=== PATIENT | male | born 1990 | race American Indian/Alaskan Native ===

== ENCOUNTER 2019-10-26 17:14 | Emergency (ER) | payer SELFPAY ==
[2019-10-26 17:48] VITALS: BP 111/67
== END 2019-10-26 17:48 | disposition left against medical advice (07) ==
LOC: ED 17:14
DX: R42 Dizziness and giddiness (principal); Z53.21 Procedure and treatment not carried out due to patient leaving prior to being seen by health care provider
CPT/HCPCS: 82962

== ENCOUNTER 2022-01-06 07:25 | Emergency (ER) | payer SELFPAY ==
[2022-01-06 07:57] VITALS: BP 132/77
[2022-01-06] MEDS ORDERED: ONDANSETRON 4 MG ODT TAB PO ONE (10:36)
[2022-01-06] MEDS ORDERED: MORPHINE 4 MG/1 ML INJ IM ONE (10:36)
[2022-01-06] MEDS ORDERED: LIDOCAINE (1%) 10 MG/1 ML VIAL 20 ML MDV INFILTRATI ONE (10:36)
--- NOTE | 2022-01-06 11:08 | Emergency Department Report ---
- General Chief complaint: Skin/Abscess/Foreign Body Stated complaint: BOIL ON BUTT Time Seen by Provider: 01/06/22 09:41 Source: patient Mode of arrival: Ambulatory Limitations: No Limitations - History of Present Illness Initial comments: 31-year-old male with no significant history presenting with abscess. Patient reports an abscess on his buttock which he noticed started about a week ago and is progressively gotten bigger and worse. Pain is worse with walking, movement, difficulty sitting, or having a bowel movement. He denies fever or chills, he denies abdominal pain, he denies prior history of abscesses, he denies diarrhea, abdominal pain vomiting fever or anal intercourse. MD complaint: abscess/boil Location: buttocks Severity scale (0 -10): 10 Quality: stabbing, sharp Consistency: constant Improves with: rest Worsens with: palpation, movement Context: none Associated symptoms: denies other symptoms Treatments Prior to Arrival: none - Related Data Previous Rx's Medication Instructions Recorded Last Taken Type Ibuprofen [Motrin 800 MG tab] 800 mg PO Q8HR PRN #30 tablet 01/06/22 Unknown Rx Sulfamethoxazole/Trimethoprim 1 each PO BID #14 01/06/22 Unknown Rx [Bactrim DS TAB] traMADoL [Ultram 50 MG tab] 50 mg PO Q6HR PRN #12 tablet 01/06/22 Unknown Rx Allergies Allergy/AdvReac Type Severity Reaction Status Date / Time No Known Allergies Allergy Unverified 01/06/22 07:57 Abscess Boil HPI - HPI Chief Complaint: Skin/Abscess/Foreign Body Stated Complaint: BOIL ON BUTT Time Seen by Provider: 01/06/22 09:41 Home Medications: Previous Rx's Medication Instructions Recorded Last Taken Type Ibuprofen [Motrin 800 MG tab] 800 mg PO Q8HR PRN #30 tablet 01/06/22 Unknown Rx Sulfamethoxazole/Trimethoprim 1 each PO BID #14 01/06/22 Unknown Rx [Bactrim DS TAB] traMADoL [Ultram 50 MG tab] 50 mg PO Q6HR PRN #12 tablet 01/06/22 Unknown Rx Allergies/Adverse Reactions: Allergies Allergy/AdvReac Type Severity Reaction Status Date / Time No Known Allergies Allergy Unverified 01/06/22 07:57 ED Review of Systems ROS: Stated complaint: BOIL ON BUTT Other details as noted in HPI Constitutional: no symptoms reported ENT: denies: ear pain, throat pain Respiratory: denies: cough Cardiovascular: denies: chest pain Endocrine: denies: excessive sweating, intolerance to cold, intolerance to heat Gastrointestinal: denies: abdominal pain, nausea, vomiting, diarrhea, constipation Genitourinary: denies: urgency, frequency Musculoskeletal: denies: back pain Skin: lesions Neurological: denies: headache, weakness Psychiatric: denies: anxiety Hematological/Lymphatic: denies: easy bleeding ED Past Medical Hx - Past Medical History Previous Medical History?: No Hx Diabetes: Yes - Surgical History Past Surgical History?: No - Social History Smoking Status: Never Smoker Substance Use Type: None - Medications Home Medications: Home Medications Medication Instructions Recorded Confirmed Last Taken Type Ibuprofen [Motrin 800 MG tab] 800 mg PO Q8HR PRN #30 tablet 01/06/22 Unknown Rx Sulfamethoxazole/Trimethoprim 1 each PO BID #14 01/06/22 Unknown Rx [Bactrim DS TAB] traMADoL [Ultram 50 MG tab] 50 mg PO Q6HR PRN #12 tablet 01/06/22 Unknown Rx ED Physical Exam - General Limitations: No Limitations General appearance: alert, anxious (Uncomfortable appearing male) - Head Head exam: Present: atraumatic - Eye Eye exam: Present: normal appearance, PERRL Pupils: Present: normal accommodation - ENT ENT exam: Present: normal exam, normal orophraynx - Neck Neck exam: Present: normal inspection - Respiratory Respiratory exam: Present: normal lung sounds bilaterally. Absent: respiratory distress - Cardiovascular Cardiovascular Exam: Present: regular rate, normal rhythm - GI/Abdominal GI/Abdominal exam: Present: soft. Absent: distended, tenderness - Rectal Rectal exam: Present: normal rectal tone, other (Patient has a 3.5 cm abscess on his right cheek gluteal cleft, does not extend to the anal area or the anus. Note palpable tracking) - External exam: Present: swelling - Extremities Exam Extremities exam: Present: normal inspection - Back Exam Back exam: Present: normal inspection, full ROM - Neurological Exam Neurological exam: Present: alert, oriented X3, CN II-XII intact, normal gait. Absent: motor sensory deficit - Psychiatric Psychiatric exam: Present: normal affect, normal mood - Skin Skin exam: Present: warm, dry, intact, normal color ED Course Vital Signs 01/06/22 07:55 Temperature 98.4 F Pulse Rate 70 Respiratory 18 Rate Blood Pressure 132/77 [Left] O2 Sat by Pulse 99 Oximetry - I & D Right Sacrum Type of Procedure: Simple Blade Size: 11 I & D Procedure: betadine prep, gauze wick placed Progress: Verbal consent from I&D obtained from patient who verbalizes the risk involved include. 3 x 5 abscess area anesthetized with lidocaine, scalpel, copious amount of purulent serous drainage expelled, patient tolerated procedure well, no indication for packing,, topical dressing. ED Medical Decision Making - Medical Decision Making Afebrile stable vital signs, nontoxic-appearing, abscess drained, expressed, discharged with warm compress, antibiotics, and outpatient follow-up. Patient remained stable nontoxic-appearing, afebrile, ambulating steadily without assistance. Gone over ED findings with patient as well as plan for follow-up. Also discussed return precautions with patient, all questions and concerns addressed. Patient is stable to be discharged follow-up outpatient. Audio voice dictation device used, hence the chart might contain some dictation errors, mispronunciations, wrong spelling and wrong verbiage. Critical care attestation.: If time is entered above; I have spent that time in minutes in the direct care of this critically ill patient, excluding procedure time. ED Disposition Clinical Impression: Abscess of buttock, right Disposition: 01 HOME / SELF CARE / HOMELESS Is pt being admited?: No Does the pt Need Aspirin: No Condition: Stable Instructions: Incision and Drainage Prescriptions: Sulfamethoxazole/Trimethoprim [Bactrim DS TAB] 1 each PO BID #14 Ibuprofen [Motrin 800 MG tab] 800 mg PO Q8HR PRN #30 tablet PRN Reason: Pain , Severe (7-10) traMADoL [Ultram 50 MG tab] 50 mg PO Q6HR PRN #12 tablet PRN Reason: Pain Referrals: PRIMARY CAREMD [Primary Care Provider] - 3-5 Days NIKKY MERCADO MD [Staff Physician] - 3-5 Days Forms: Work/School Release Form(ED)
== END 2022-01-06 12:36 | disposition home or self-care (01) ==
LOC: ED 07:25
DX: L02.31 Cutaneous abscess of buttock (principal); E11.9 Type 2 diabetes mellitus without complications; Z98.890 Other specified postprocedural states
CPT/HCPCS: 10060; 96372; 99282; J2270; J3490; Q0162